=== PATIENT | male | born 1940 | race Caucasian/White ===

== ENCOUNTER 2018-11-16 15:41 | Emergency (ER) | payer MEDICARE, BC ==
[~2018-11-16] VITALS: Ht 170.2 cm; Wt 76.3 kg
[2018-11-16 16:20] VITALS: BP 168/88
[2018-11-16] MEDS ORDERED: LIDOcaine 1% 30ml preserv. free vial SQ STA (16:24)
[2018-11-16] MEDS ORDERED: TETanus/Pertussis (Acell)/Diphther VAC/PF (Tdap-Adult) 0.5ml syringe IMVAC ONE (16:25)
[2018-11-16] MEDS ORDERED: DOXY100C43 PO (16:56)
== END 2018-11-16 17:08 | disposition home or self-care (01) ==
LOC: ER 15:41
DX: S61.011A Laceration without foreign body of right thumb without damage to nail, initial encounter (principal); E78.00 Pure hypercholesterolemia, unspecified; K21.9 Gastro-esophageal reflux disease without esophagitis; W45.8XXA Other foreign body or object entering through skin, initial encounter; Y93.89 Activity, other specified; Y92.89 Other specified places as the place of occurrence of the external cause; Y99.8 Other external cause status
CPT/HCPCS: 12001; 90471; 90715; 99283; J3490